=== PATIENT | female | born 1985 | race Caucasian/White ===

== ENCOUNTER 2024-12-26 17:23 | Inpatient (IN) | payer BC ==
[~2024-12-26] VITALS: Ht 170.2 cm; Wt 75.0 kg
[~2024-12-26 17:23] MED LIST: FAMO-128 PO; HYDR-3972 PO; OMEP20TA43 PO; ONDA4TAB6 PO; SUCR1TAB34 PO; ZOLP10TA5 PO
--- NOTE | 2024-12-26 19:35 | Physician Documentation ---
History of Present Illness ~ Chief Complaint: ETOH Withdrawl Stated Complaint: DETOX Time Seen by MD: 19:35 Primary Medical Doctor: Niharika JONES HPI 39-year-old female, history of chronic alcohol abuse, who presents with concern for alcohol withdrawal. She tells me that she is a daily drinker. She drinks at least a pt of hard alcohol daily. She has had withdrawal in the past including severe tremors and vomiting, but no history of alcohol withdrawal seizures. She does have a history of epilepsy and is on Keppra. Currently she feels anxious. She denies any significant tremors or nausea. No other acute concerns. Her is very concerned, thinks that she is not safe to be at home, thinks that she is going to kill herself due to her drinking. Tetanus within 5 years?: Yes Medication Reconciliation Allergies: Coded Allergies: Sulfa (Sulfonamide Antibiotics) (Verified Allergy, Unknown, 12/26/24) Scheduled Famotidine (Pepcid), 1 TABLET PO BID Levetiracetam (Levetiracetam), 1 TAB PO BID, (Reported) Omeprazole (Omeprazole), 1 TABLET PO DAILY Sertraline HCl (Sertraline HCl), 1 TAB PO DAILY, (Reported) Sucralfate (Carafate), 1 GM PO BID@07,16 Scheduled PRN Hydrocodone Bit/Acetaminophen (Hydrocodon-Acetaminophn 10-325 tablet), 1 TAB PO Q6H PRN for moderate or severe pain, (Reported) Ondansetron Hcl (Zofran), 1 TABLET PO Q4H PRN for nausea/vomiting Zolpidem Tartrate* (Ambien*), 1 TAB PO HS PRN for sleep, (Reported) Past Medical History Past Medical History: Pancreatitis, Chronic Back Pain Past Surgical History: gastric bypass Patient History: Patient reports no known family medical history. Alcohol Use: Other Drug Use: marijuana Lives with: S/O Lives In: Home Review of Systems Gastrointestinal: Denies: abdominal pain, nausea Psychiatric: Reports: anxiety Physical Exam Vital Signs: Temperature: 99.2, Source: Oral, Heart Rate: 117, Respiratory Rate: 20, BP: 132/93, Pulse Oximetry: 97, Weight: 75.000 Physical Exam General: This is an overall well-appearing young female, family at bedside HEENT: Atraumatic, oropharynx is moist Heart: Mild tachycardic, appears regular Lungs: normal work of breathing, normal oxygen saturation on room air Abdomen: Soft, nondistended Neuro: Alert and oriented, no focal deficits Psychiatric: Calm and cooperative with exam. Does not have tremors or tongue fasciculations. Progress Results/Orders Results/Orders Orders - BECKY FONSEAC MD Page Hospitalist (12/26/24 21:18) Completed Orders - BECKY FONSECA MD Cbc/Diff (12/26/24 19:35) CMP (12/26/24 19:35) Ethanol (12/26/24 19:35) Hcg Serum Ql (12/26/24 19:35) Lipase (12/26/24 19:35) MG (12/26/24 19:35) Chlordiazepoxide Capsule (Librium Capsul (12/26/24 21:20) Medications Received in ER Medications (Trade) Dose Ordered Sig/Elena Route PRN Reason Start Time Stop Time Status Last Admin Dose Admin Sodium Chloride 1,000 ml @ 100 mls/hr Q10H IV 12/26/24 21:50 12/26/24 22:22 100 MLS/HR Vital Signs 12/26/24 12/26/24 12/26/24 17:40 20:02 20:30 Temp 99.2 Pulse 117 90 Resp 20 16 16 B/P (MAP) 132/93 122/86 (98) Pulse Ox 97 99 Laboratory Tests Test 12/26/24 19:35 12/26/24 19:47 Sodium Level 140 Potassium Level 3.9 Chloride Level 100 Carbon Dioxide Level 22.3 L Anion Gap 18 H Blood Urea Nitrogen 13 Creatinine 0.79 Estimated GFR/1.73 m2 82 BUN/Creatinine Ratio 16.5 Glucose Level 93 Calcium Level 9.0 Magnesium Level 2.0 Total Bilirubin 0.5 Aspartate Amino Transf (AST/SGOT) 64 H Alanine Aminotransferase (ALT/SGPT) 52 Alkaline Phosphatase 115 Total Protein 8.2 Albumin 4.1 Globulin 4.1 Albumin/Globulin Ratio 1.0 L Lipase 33 Human Chorionic Gonadotropin, Qual Negative Chemistry Comments Ethyl Alcohol Level 326 H White Blood Count 7.8 Red Blood Count 4.55 Hemoglobin 13.5 Hematocrit 40.0 Mean Corpuscular Volume 88.0 Mean Corpuscular Hemoglobin 29.7 Mean Corpuscular Hemoglobin Concent 33.8 Red Cell Distribution Width 16.0 H Platelet Count 279 Mean Platelet Volume 8.2 Neutrophils (%) (Auto) 63.8 Lymphocytes (%) (Auto) 29.2 Monocytes (%) (Auto) 6.2 Eosinophils (%) (Auto) 0.4 Basophils (%) (Auto) 0.4 Neutrophils # (Auto) 5.0 Lymphocytes # (Auto) 2.3 Monocytes # (Auto) 0.5 Eosinophils # (Auto) 0.0 Basophils # (Auto) 0.0 CBC Comment Hemoglobin A1c 5.2 Consults/PCP Consults/PCP : Additional Comment Consult: I spoke to the internal medicine service, for admission in the hospital Medical Decision Making Additional Comment The patient presents with concern for alcohol withdrawal. On exam she has mild symptoms of withdrawal, but no dangerous findings. Her laboratory testing shows an elevated alcohol level, but no other dangerous abnormalities. She will be admitted to the medicine service for treatment of alcohol withdrawal. She was given Librium. Departure Impression: Primary Impression: Alcoholic intoxication Additional Impression: Alcohol withdrawal syndrome Referrals: NO PRIMARY CARE PROVIDER (PCP) Signature Scribe Signature: abbey Attestation: BECKY Morris MD Dec 26, 2024 19:35
[2024-12-26 20:05] LABS: BASOPHILS % (AUTO) 0.4 % (0-1); EOSINOPHILS % (AUTO) 0.4 % (0-6); HEMOGLOBIN 13.5 g/dl (12.0-16.0); LYMPHOCYTES # (AUTO) 2.3 X10'3 (1.1-4.8); LYMPHOCYTES % (AUTO) 29.2 % (21-51); MEAN CORPUSCULAR HEMOGLOBIN 29.7 PG (27.0-31.0); MEAN CORPUSCULAR HGB CONC 33.8 g/dL (33.0-36.5); MEAN PLATELET VOLUME 8.2 FL (7.4-10.4); MONOCYTES # (AUTO) 0.5 X10'3 (0-0.9); MONOCYTES % (AUTO) 6.2 % (2-12); NEUTROPHILS % (AUTO) 63.8 % (42-75); PLATELET COUNT 279 X10'3 (140-440); RED BLOOD COUNT 4.55 X10'6 (4.20-5.60); WHITE BLOOD COUNT 7.8 X10'3 (4.5-11.0)
[2024-12-26 20:12] LABS: HCG SERUM QL NEGATIVE
[2024-12-26] MEDS ORDERED: SERT-434 PO (20:24)
[2024-12-26] MEDS ORDERED: LEVE750T PO (20:24)
[2024-12-26 20:35] LABS: ALANINE AMINOTRANSFERASE 52 U/L (12-78); ALBUMIN 4.1 G/DL (3.4-5.0); ALKALINE PHOSPHATASE 115 IU/L (46-116); ANION GAP 18 (8-16); ASPARTATE AMINO TRANSFERASE 64 U/L (10-37); BILIRUBIN,TOTAL 0.5 MG/DL (0.1-1.0); BLOOD UREA NITROGEN 13 MG/DL (7-18); BUN/CREATININE RATIO 16.5 (10.0-20.0); CHLORIDE 100 MMOL/L (99-107); CREATININE 0.79 MG/DL (0.40-0.90); GLUCOSE 93 MG/DL (70-104); POTASSIUM 3.9 MMOL/L (3.5-5.1); SODIUM 140 MMOL/L (135-145); TOTAL CARBON DIOXIDE 22.3 MMOL/L (24-32); TOTAL PROTEIN 8.2 G/DL (6.4-8.2); eCRCL 95 ML/MIN; eGFR 82 ML/MIN
[2024-12-26 20:36] LABS: LIPASE 33 U/L (16-77)
[2024-12-26 20:42] LABS: ETHANOL 326 MG/DL (<10)
[2024-12-26] MEDS: chlordiazePOXIDE 25mg capsule PO ONE (21:39)
[2024-12-26] MEDS ORDERED: magnesium sulf-water 2g/50mL 50 ML IV PRN (21:50)
[2024-12-26] MEDS ORDERED: potassium Cl 40MEQ/1/2NS 520ml 520 ML IV PRN (21:50)
[2024-12-26] MEDS ORDERED: magnesium Cl slow-release 64mg tablet PO PRN (21:50)
[2024-12-26] MEDS ORDERED: potassium Cl 20 mEq SR tablet PO PRN ×2 (21:50)
[2024-12-26] MEDS ORDERED: magnesium sulf-water 4G/100mL 100 ML IV PRN (21:50)
[2024-12-26] MEDS ORDERED: magnesium hydroxide 30ml (MOM) UD suspension PO PRN (21:50)
[2024-12-26] MEDS ORDERED: haloperidol 5mg tablet PO PRN (21:55)
[2024-12-26] MEDS ORDERED: haloperidol lactate 5mg/ml inj IM PRN (21:55)
[2024-12-26] MEDS: folic acid 1mg/0.2ml inj IV SCH (22:22)
[2024-12-26] MEDS: normal saline 1000ml 1,000 ML IV SCH (22:22)
[2024-12-26 23:05] VITALS: BP 133/87; PULSE 100; RESP 22; TEMP 97.5; O2SAT 100
[2024-12-26] MEDS: LORazepam 2 mg/ml vial IV PRN (23:10)
--- NOTE | 2024-12-27 00:31 | HISTORY AND PHYSICAL-Residence ---
History & Physical Providers to CC Resident Creating Document: EARLE STALLINGS LO ~ History of Present Illness Primary Medical Doctor: Niharika JONES Reason for Admit\Complaint: Alcohol withdrawal History of Present Illness 39 years old female with history of epilepsy, chronic alcohol abuse presented to the ED with concern of alcohol withdrawal. Patient usually drink one bottle of hard liquor/whiskey. He quit drinking alcohol few weeks ago however he started drinking again recently. The last drinking was today one bottle of whiskey at noon. She is very anxious and concerned about withdrawal symptoms. She denies any hallucination, shortness of breath, chest pain abdominal pain or any other symptoms. Allergies: Coded Allergies: Sulfa (Sulfonamide Antibiotics) (Verified Allergy, Unknown, 12/26/24) Home Medications Home Medications Active Pepcid (Famotidine) 20 Mg Tablet 1 Tablet PO BID Zofran (Ondansetron Hcl) 4 Mg Tablet 1 Tablet PO Q4H PRN Omeprazole 20 Mg Tablet.dr 1 Tablet PO DAILY Carafate (Sucralfate) 1 Gm Tablet 1 Gm PO BID@,16 Reported Sertraline HCl 100 Mg Tablet 1 Tab PO DAILY Levetiracetam 750 Mg Tablet 1 Tab PO BID Ambien* (Zolpidem Tartrate) 10 Mg Tablet 1 Tab PO HS PRN Hydrocodon-Acetaminophn 10-325 tablet (Acetaminophen/Hydrocodone Bitart) 1 Each Tablet 1 Tab PO Q6H PRN Past Medical History Past Medical History Epilepsy Past Surgical History Surgical History Comment section Gastric bypass in 2007 Family History Family History: Patient reports no known family medical history. Past Social History Smoking: Non-Smoker Alcohol Use: Heavy Drug Use: Marijuana (Couple times in a week) Lives with: S/O Lives In: Home ROS ROS The history of present illness included a review of system, which yielded relevant positives and negatives Gastrointestinal: Denies: abdominal pain, nausea Psychiatric: Reports: anxiety Exam Vitals: Vital Signs Date Time Temp Pulse Resp B/P (MAP) Pulse Ox O2 Delivery O2 Flow Rate FiO2 12/26/24 23:17 107 12/26/24 23:05 97.5 22 133/87 (102) 100 Room Air General: General: Awake and Alert, no acute distress. HEENT: Conjunctiva pink, Sclera clear, Mucus Membranes moist. Neck: Supple without masses and tenderness. Resp: Lungs clear to auscultation bilaterally. Heart: Regular Rate and rhythm, normal S1 and S2 without murmur Abdomen: Soft and non tender no organomegaly Extremities: No cyanosis,clubbing or edema. Skin: Warm and Dry. Neurological: Speech is clear, alert, and oriented x 4, no gross neurological deficits Mild tremor Diagnostic Data Last Recorded Lab Results: 12/26/24194612/26/241934 Advance Care Planning Advanced Care plannin - 30 Minutes Additional Plan 79 years old female with history of epilepsy and chronic alcohol abuse presented to the ED with concern of alcohol withdrawal Heavy drinking alcohol Patient is drinking alcohol one bottle every day for a long time, she quit drinking couple weeks ago however she start drinking again. Last drink was today She is anxious with mild tremor on admission, alcohol level is 326 On moderate alcohol withdrawal thiamine, folic acid and Ativan haloperidol History of epilepsy Was diagnosed couple of months ago Continue home medication Code Status: full DVT prophylaxis: heparin Analgesia/sedation: Ativan, Line/tube: peripheral GI prophylaxis: Protonix Nutrition: Regular Prognosis: Fair Disposition: Continue monitoring patient in ortho floor with telemetry Earle Stallings MD Internal Medicine Resident I saw and discussed the patient with the resident team Alcohol abuse hx will see the substance abuse social work administrator or navigator ON IVF noted some low bicarb and high anion gap - ?? effect of alcohol etc - see how it evolves with hydration contd ciwa protocol agree with rest of assessment and plan thank you Date of Service: Dec 27, 2024 Billing Provider: JANE RASHEED MD, ELAHE, RES Dec 27, 2024 00:31 JANE RASHEED MD Dec 27, 2024 02:46
[2024-12-27 06:00] VITALS: BP 128/83; PULSE 91; RESP 17; TEMP 98.4; O2SAT 98
[2024-12-27 06:31] LABS: BASOPHILS % (AUTO) 0.4 % (0-1); EOSINOPHILS # (AUTO) 0.1 X10'3 (0-0.9); EOSINOPHILS % (AUTO) 1.6 % (0-6); HEMATOCRIT 33.8 % (35.0-45.0); HEMOGLOBIN 11.4 g/dl (12.0-16.0); LYMPHOCYTES # (AUTO) 1.4 X10'3 (1.1-4.8); LYMPHOCYTES % (AUTO) 27.8 % (21-51); MEAN CORPUSCULAR HEMOGLOBIN 29.9 PG (27.0-31.0); MEAN CORPUSCULAR HGB CONC 33.8 g/dL (33.0-36.5); MEAN CORPUSCULAR VOLUME 88.5 FL (78-98); MEAN PLATELET VOLUME 8.7 FL (7.4-10.4); MONOCYTES # (AUTO) 0.6 X10'3 (0-0.9); MONOCYTES % (AUTO) 11.6 % (2-12); NEUTROPHILS % (AUTO) 58.6 % (42-75); PLATELET COUNT 164 X10'3 (140-440); RED BLOOD COUNT 3.82 X10'6 (4.20-5.60); RED CELL DISTRIBUTION WIDTH 15.5 % (11.5-14.5); WHITE BLOOD COUNT 5.1 X10'3 (4.5-11.0)
[2024-12-27 07:14] LABS: ALANINE AMINOTRANSFERASE 42 U/L (12-78); ALBUMIN 3.2 G/DL (3.4-5.0); ALBUMIN/GLOBULIN RATIO 0.9 (1.1-1.5); ALKALINE PHOSPHATASE 100 IU/L (46-116); AMYLASE 38 U/L (25-115); ANION GAP 14 (8-16); ASPARTATE AMINO TRANSFERASE 50 U/L (10-37); BILIRUBIN,TOTAL 0.6 MG/DL (0.1-1.0); BLOOD UREA NITROGEN 12 MG/DL (7-18); BUN/CREATININE RATIO 15.6 (10.0-20.0); CALCIUM 8.2 MG/DL (8.5-10.1); CHLORIDE 101 MMOL/L (99-107); CHOL/HDL RATIO 2.2 (0.00-4.99); CHOLESTEROL 254 MG/DL (0-200); CREATININE 0.77 MG/DL (0.40-0.90); GLUCOSE 76 MG/DL (70-104); HDL CHOLESTEROL 113 MG/DL (35-60); LDL CHOLESTEROL 75 MG/DL (50-100); LIPASE 36 U/L (16-77); MAGNESIUM 1.7 MG/DL (1.5-2.4); PHOSPHORUS 3.4 MG/DL (2.3-4.5); POTASSIUM 3.7 MMOL/L (3.5-5.1); SODIUM 139 MMOL/L (135-145); TOTAL CARBON DIOXIDE 23.7 MMOL/L (24-32); TOTAL PROTEIN 6.6 G/DL (6.4-8.2); TRIGLYCERIDES 134 MG/DL (20-135); eCRCL 97 ML/MIN; eGFR 84 ML/MIN
[2024-12-27] MEDS: K and/or MAG REPLACEMENT MC SCH (07:31)
[2024-12-27] MEDS: thiamine 100mg/ml 2ml inj. IV SCH (07:49)
[2024-12-27] MEDS: multivitamins, therapeutics tablet PO SCH (07:50)
[2024-12-27] MEDS: levetiracetam 250mg tablet PO SCH (07:50)
[2024-12-27] MEDS: heparin, porcine 5000 units/ml vial SQ SCH (07:51)
--- NOTE | 2024-12-27 08:48 | PROGRESS NOTE ---
Daily Progress Note Providers to CC ~ Antibiotic Timeout Antibiotic Ordered?: No Subjective Chief complaint I wonder if my liver is dying Review of systems negative for all 10 systems reviewed Objective Vital Signs Date Time Temp Pulse Resp B/P (MAP) Pulse Ox O2 Delivery O2 Flow Rate FiO2 12/27/24 06:00 98.4 91 17 128/83 (98) 98 Room Air Result Diagram: 12/27/24 0540 12/27/24 0540 General: Awake and Alert, x4 no acute distress. HEENT: Conjunctiva pink, Sclera clear, Mucus Membranes moist. Neck: Supple without masses and tenderness. Resp: Lungs clear to auscultation bilaterally. Heart: Regular Rate and rhythm, normal S1 and S2 without murmur Abdomen: Soft and non tender no organomegaly Extremities: No cyanosis,clubbing or edema. Coagulation Studies Laboratory Tests Test 12/27/24 05:40 Prothrombin Time 10.0 SECONDS (9.0-12.0) INR International Normalized Ratio 1.0 INR Coagulation Comments Problem\Assessment\Plan Additional Plan 79 years old female with history of epilepsy and chronic alcohol abuse presented to the ED with concern of alcohol withdrawal Heavy drinking alcohol Patient is drinking alcohol one bottle every day for a long time, she quit drinking couple weeks ago however she start drinking again. Last drink was today She is anxious with mild tremor on admission, alcohol level is 326 On moderate alcohol withdrawal thiamine, folic acid and Ativan haloperidol Increased AST Patient advised against drinking Consult with substance abuse navigator History of epilepsy Was diagnosed couple of months ago Continue home medication Code Status: full DVT prophylaxis: heparin Analgesia/sedation: Ativan, Line/tube: peripheral GI prophylaxis: Protonix Nutrition: Regular Prognosis: Fair Possibly DC home in a.m. Date of Service: Dec 27, 2024 Billing Provider: RACHEL EVANS MD Common Visit Codes: [id number] INP/OBS CARE(HIGH) RACHEL EVANS MD Dec 27, 2024 08:48
[2024-12-27 10:00] VITALS: BP 123/85; PULSE 119; RESP 18; TEMP 98.3; O2SAT 96
[2024-12-27] MEDS ORDERED: acetaminophen 325mg tablet PO PRN (11:30)
[2024-12-27] MEDS: acetaminophen 325mg tablet PO PRN (11:40)
[2024-12-27 18:00] VITALS: BP 142/95; PULSE 110; RESP 18; TEMP 98.3; O2SAT 99
[2024-12-27 20:00] VITALS: RESP 15; O2SAT 96
[2024-12-27 22:00] VITALS: BP 148/96; PULSE 63; RESP 20; TEMP 98.6; O2SAT 99
[2024-12-28 06:00] VITALS: BP 126/86; PULSE 63; RESP 16; TEMP 97; O2SAT 98
[2024-12-28 06:21] LABS: BASOPHILS % (AUTO) 0.4 % (0-1); EOSINOPHILS # (AUTO) 0.1 X10'3 (0-0.9); EOSINOPHILS % (AUTO) 3.1 % (0-6); HEMATOCRIT 31.4 % (35.0-45.0); HEMOGLOBIN 10.6 g/dl (12.0-16.0); LYMPHOCYTES # (AUTO) 0.9 X10'3 (1.1-4.8); LYMPHOCYTES % (AUTO) 20.4 % (21-51); MEAN CORPUSCULAR HEMOGLOBIN 30.2 PG (27.0-31.0); MEAN CORPUSCULAR HGB CONC 33.8 g/dL (33.0-36.5); MEAN CORPUSCULAR VOLUME 89.3 FL (78-98); MEAN PLATELET VOLUME 8.9 FL (7.4-10.4); MONOCYTES # (AUTO) 0.3 X10'3 (0-0.9); MONOCYTES % (AUTO) 7.1 % (2-12); PLATELET COUNT 136 X10'3 (140-440); RED BLOOD COUNT 3.51 X10'6 (4.20-5.60); RED CELL DISTRIBUTION WIDTH 15.4 % (11.5-14.5); WHITE BLOOD COUNT 4.4 X10'3 (4.5-11.0)
[2024-12-28 06:35] LABS: PROTHROMBIN TIME 10.3 SECONDS (9.0-12.0)
[2024-12-28 06:43] LABS: ALANINE AMINOTRANSFERASE 32 U/L (12-78); ALBUMIN 2.7 G/DL (3.4-5.0); ALBUMIN/GLOBULIN RATIO 0.9 (1.1-1.5); ALKALINE PHOSPHATASE 89 IU/L (46-116); AMYLASE 38 U/L (25-115); ANION GAP 8 (8-16); ASPARTATE AMINO TRANSFERASE 28 U/L (10-37); BLOOD UREA NITROGEN 13 MG/DL (7-18); BUN/CREATININE RATIO 19.7 (10.0-20.0); CALCIUM 8.4 MG/DL (8.5-10.1); CHLORIDE 104 MMOL/L (99-107); CREATININE 0.66 MG/DL (0.40-0.90); GLUCOSE 109 MG/DL (70-104); LIPASE 35 U/L (16-77); MAGNESIUM 1.7 MG/DL (1.5-2.4); PHOSPHORUS 3.2 MG/DL (2.3-4.5); POTASSIUM 3.9 MMOL/L (3.5-5.1); SODIUM 137 MMOL/L (135-145); TOTAL CARBON DIOXIDE 25.5 MMOL/L (24-32); TOTAL PROTEIN 5.8 G/DL (6.4-8.2); eCRCL 113 ML/MIN; eGFR > 90 ML/MIN
[2024-12-28 10:00] VITALS: BP 111/70; PULSE 102; RESP 19; TEMP 97.8; O2SAT 97
--- NOTE | 2024-12-28 14:26 | RADIOLOGY REPORT ---
EXAM: DI FOOT,LIMITED (AP/LAT) CLINICAL INDICATION: per patient, they dropped heavy object on right great toe - r/o fx TECHNIQUE: DI FOOT,LIMITED (AP/LAT) Comparison: None FINDINGS/IMPRESSION: Nondisplaced fracture involving the distal phalanx of the 1st digit.
[2024-12-28 18:00] VITALS: BP 139/93; PULSE 89; RESP 16; TEMP 97.8; O2SAT 99
[2024-12-28] MEDS ORDERED: HYDROmorphone inj. 0.5 MG/0.5 ML DISP.SYRIN IV PRN (19:35)
[2024-12-28 20:05] VITALS: RESP 16
[2024-12-28] MEDS: HYDROcodone/acetaminophen 5mg/325mg tablet PO PRN (20:09)
--- NOTE | 2024-12-28 21:20 | PROGRESS NOTE ---
Daily Progress Note Providers to CC ~ Antibiotic Timeout Antibiotic Ordered?: No Subjective Patient was seen in presence of her mother who feels that Elmer might be t riggering her alcohol abuse. Patient is currently not working lives with her . Patient is concerned about her alcohol abuse. She has history of epilepsy no further episode of seizure or epilepsy is since admission. Patient needs physical therapy evaluation. Objective Vital Signs Date Time Temp Pulse Resp B/P (MAP) Pulse Ox O2 Delivery O2 Flow Rate FiO2 12/28/24 20:09 16 12/28/24 20:05 Room Air 12/28/24 10:00 97.8 102 111/70 (20) 97 Result Diagram: 12/28/24 0602 12/28/24 0602 General-patient not in any acute distress, alert awake oriented, age- appropriate, looks comfortable HEENT-atraumatic normocephalic, neck supple without elevated JVD, no thyromegaly or carotid bruit. No lymphadenopathy bilaterally. Eyes-no icterus or pallor seen in eyes Chest-clear to auscultation bilaterally, breathing nonlabored no tachypnea, no wheezing, no crepitation, no crackles. Heart-S1-S2 normal, regular heart rate no murmur Abdomen bowel sounds positive on auscultation, soft nondistended nontender no guarding, no rigidity Skin no active skin rash Neurology-grossly intact, nonfocal alert awake oriented Extremity- no pedal edema able to move all 4 extremities Psychiatry - patient is not confused or agitated cooperated during physical examination Coagulation Studies Laboratory Tests Test 12/28/24 06:02 Prothrombin Time 10.3 SECONDS (9.0-12.0) INR International Normalized Ratio 1.0 INR Coagulation Comments Problem\Assessment\Plan Additional Plan 79 years old female with history of epilepsy and chronic alcohol abuse presented to the ED with concern of alcohol withdrawal Heavy drinking alcohol Patient is drinking alcohol one bottle every day for a long time, she quit drinking couple weeks ago however she start drinking again. Last drink was yesterday She is anxious with mild tremor on admission, alcohol level is 326 On moderate alcohol withdrawal thiamine, folic acid and Ativan haloperidol Increased AST Patient advised against drinking Consult with substance abuse navigator History of epilepsy Was diagnosed couple of months ago Continue home medication Code Status: full DVT prophylaxis: heparin Analgesia/sedation: Ativan, Line/tube: peripheral GI prophylaxis: Protonix Nutrition: Regular Prognosis: Fair Possibly DC home in a.m. if clinically stable. Date of Service: Dec 28, 2024 Billing Provider: DEWEY STUART MD Common Visit Codes: [id number] INP/OBS CARE(HIGH) DEWEY STUART MD Dec 28, 2024 21:20
[2024-12-28] MEDS ORDERED: LORazepam 2 mg/ml vial IV PRN (21:55)
[2024-12-28 22:00] VITALS: BP 141/99; PULSE 82; RESP 16; TEMP 97.9; O2SAT 99
[2024-12-28] MEDS: LORazepam 1 MG tablet PO PRN (23:32)
[2024-12-29 01:30] VITALS: BP 127/94; PULSE 69; RESP 18; TEMP 97.8; O2SAT 98
[2024-12-29] MEDS: ondansetron/PF 4mg/2ml inj IV PRN (01:37)
[2024-12-29 04:36] LABS: BASOPHILS % (AUTO) 0.3 % (0-1); EOSINOPHILS # (AUTO) 0.1 X10'3 (0-0.9); EOSINOPHILS % (AUTO) 3.9 % (0-6); HEMOGLOBIN 10.6 g/dl (12.0-16.0); LYMPHOCYTES # (AUTO) 0.8 X10'3 (1.1-4.8); MEAN CORPUSCULAR HEMOGLOBIN 29.6 PG (27.0-31.0); MEAN CORPUSCULAR VOLUME 89.8 FL (78-98); MEAN PLATELET VOLUME 8.9 FL (7.4-10.4); MONOCYTES # (AUTO) 0.2 X10'3 (0-0.9); MONOCYTES % (AUTO) 5.3 % (2-12); NEUTROPHILS # (AUTO) 2.7 X10'3 (1.8-7.7); NEUTROPHILS % (AUTO) 70.5 % (42-75); PLATELET COUNT 112 X10'3 (140-440); RED BLOOD COUNT 3.56 X10'6 (4.20-5.60); RED CELL DISTRIBUTION WIDTH 15.6 % (11.5-14.5); WHITE BLOOD COUNT 3.8 X10'3 (4.5-11.0)
[2024-12-29 04:51] LABS: PROTHROMBIN TIME 10.4 SECONDS (9.0-12.0)
[2024-12-29 04:58] LABS: ALANINE AMINOTRANSFERASE 187 U/L (12-78); ALBUMIN 2.9 G/DL (3.4-5.0); ALBUMIN/GLOBULIN RATIO 0.9 (1.1-1.5); ALKALINE PHOSPHATASE 214 IU/L (46-116); AMYLASE 38 U/L (25-115); ANION GAP 8 (8-16); ASPARTATE AMINO TRANSFERASE 272 U/L (10-37); BLOOD UREA NITROGEN 12 MG/DL (7-18); BUN/CREATININE RATIO 18.8 (10.0-20.0); CALCIUM 8.7 MG/DL (8.5-10.1); CHLORIDE 106 MMOL/L (99-107); CREATININE 0.64 MG/DL (0.40-0.90); GLUCOSE 90 MG/DL (70-104); LIPASE 31 U/L (16-77); MAGNESIUM 1.8 MG/DL (1.5-2.4); PHOSPHORUS 4.2 MG/DL (2.3-4.5); POTASSIUM 3.7 MMOL/L (3.5-5.1); SODIUM 141 MMOL/L (135-145); TOTAL CARBON DIOXIDE 26.8 MMOL/L (24-32); TOTAL PROTEIN 6.1 G/DL (6.4-8.2); eCRCL 117 ML/MIN; eGFR > 90 ML/MIN
[2024-12-29 06:00] VITALS: BP 139/86; PULSE 74; RESP 16; TEMP 97.6; O2SAT 98
[2024-12-29 08:00] VITALS: RESP 16; O2SAT 98
[2024-12-29 10:00] VITALS: BP 146/87; PULSE 93; RESP 17; TEMP 98.4; O2SAT 99
--- NOTE | 2024-12-29 12:54 | RADIOLOGY REPORT ---
Exam: CT CT ABDOMEN PELVIS History: elevated LFT Comparison Study: None Technique: Multidetector spiral CT of the abdomen was performed from lung bases to pubic symphysis. Imaging was performed without IV contrast. Axial, coronal and sagittal multiplanar reformats were ob tained from the axial data set by the technologist. Radiation Dose : 1. Abdomen/Pelvis: CTDIvol 22 mGy, DLP 1194 mGy*cm. Findings: Evaluation of solid organs is limited due to lack of intravenous contrast use. Lung Bases: No acute or significant lung base finding. Normal heart size. No pleural or pericardial effusion. Liver: The liver is normal in size. No focal lesions. Gallbladder and Biliary Tree: Cholelithiasis noted without secondary findings of cholecystitis or dru iary obstruction. Spleen: Unremarkable Pancreas: The pancreas is grossly normal in appearance. Adrenal Glands: Unremarkable Kidneys: Kidneys are grossly normal without calculi or hydronephrosis. Bladder: Grossly unremarkable for degree of distention. Bowel: Surgical fixation hardware seen around the stomach. Small bowel and colon are normal in calibe r and distribution. The appendix is not visualized; however, no secondary findings of acute appendic itis identified. Moderate to large colonic stool burden Ascites: Absent Lymphadenopathy: No mesenteric, retroperitoneal or periportal lymphadenopathy. Abdominal Wall and Mesentery: Unremarkable. Vasculature: The visualized abdominal aorta is normal in size and caliber. Evaluation of abdominal a nd pelvic vessels is limited due to lack of intravenous contrast. Pelvic Organs: Unremarkable Musculoskeletal: No aggressive focal bony lesions, acute fractures or dislocation. IMPRESSION: 1. No acute abdominal or pelvic findings. 2. Cholelithiasis. 3. Moderate to large colonic stool burden Radiation optimization: All CT scans at this facility use at least one of these dose optimization gillian hniques: automated exposure control mA and/or kV adjustment per patient size (includes targeted exam s where dose is matched to clinical indication) or iterative reconstruction.
[2024-12-29 18:30] VITALS: BP 144/90; PULSE 97; RESP 17; TEMP 97; O2SAT 99
--- NOTE | 2024-12-29 19:42 | PROGRESS NOTE ---
Daily Progress Note Providers to CC ~ Antibiotic Timeout Antibiotic Ordered?: No Subjective Patient was seen in presence of her mother today. Detailed counseling done regarding risk and consequences of alcohol abuse. Patient's liver enzymes increase today likely due to recent use of Ativan we will continue to monitor patient's liver function. CT scan abdomen and pelvis findings discussed with patient's mom and patient in visit. Objective Vital Signs Date Time Temp Pulse Resp B/P (MAP) Pulse Ox O2 Delivery O2 Flow Rate FiO2 12/29/24 18:30 97.0 97 17 144/90 (108) 99 Room Air 12/29/24 04:54 0 21 Result Diagram: 12/29/24 0411 12/29/24 0411 General-patient not in any acute distress, alert awake oriented, age- appropriate, looks comfortable HEENT-atraumatic normocephalic, neck supple without elevated JVD, no thyromegaly or carotid bruit. No lymphadenopathy bilaterally. Eyes-no icterus or pallor seen in eyes Chest-clear to auscultation bilaterally, breathing nonlabored no tachypnea, no wheezing, no crepitation, no crackles. Heart-S1-S2 normal, regular heart rate no murmur Abdomen bowel sounds positive on auscultation, soft nondistended nontender no guarding, no rigidity Skin no active skin rash Neurology-grossly intact, nonfocal alert awake oriented Extremity- no pedal edema able to move all 4 extremities Psychiatry - patient is not confused or agitated cooperated during physical examination Coagulation Studies Laboratory Tests Test 12/29/24 04:11 Prothrombin Time 10.4 SECONDS (9.0-12.0) INR International Normalized Ratio 1.0 INR Coagulation Comments Problem\Assessment\Plan Additional Plan 79 years old female with history of epilepsy and chronic alcohol abuse presented to the ED with concern of alcohol withdrawal Heavy drinking alcohol Patient is drinking alcohol one bottle every day for a long time, she quit drinking couple weeks ago however she start drinking again. Last drink was yesterday She is anxious with mild tremor on admission, alcohol level is 326 On moderate alcohol withdrawal thiamine, folic acid and Ativan haloperidol Increased AST Patient advised against drinking Consult with substance abuse navigator History of epilepsy Was diagnosed couple of months ago Continue home medication Code Status: full DVT prophylaxis: heparin Analgesia/sedation: Ativan, Line/tube: peripheral GI prophylaxis: Protonix Nutrition: Regular Prognosis: Fair Possibly DC home in a.m. if clinically stable. I will continue to follow patient in AM . Date of Service: Dec 29, 2024 Billing Provider: DEWEY STUART MD Common Visit Codes: [id number] INP/OBS CARE(HIGH) DEWEY STUART MD Dec 29, 2024 19:42
[2024-12-29 22:00] VITALS: BP 143/102; PULSE 72; RESP 16; TEMP 98.1; O2SAT 99
[2024-12-30 04:34] LABS: BASOPHILS % (AUTO) 0.5 % (0-1); EOSINOPHILS # (AUTO) 0.2 X10'3 (0-0.9); EOSINOPHILS % (AUTO) 4.9 % (0-6); HEMATOCRIT 30.4 % (35.0-45.0); HEMOGLOBIN 10.1 g/dl (12.0-16.0); LYMPHOCYTES # (AUTO) 0.9 X10'3 (1.1-4.8); LYMPHOCYTES % (AUTO) 27.3 % (21-51); MEAN CORPUSCULAR HEMOGLOBIN 29.8 PG (27.0-31.0); MEAN CORPUSCULAR HGB CONC 33.1 g/dL (33.0-36.5); MEAN CORPUSCULAR VOLUME 90.1 FL (78-98); MEAN PLATELET VOLUME 9.2 FL (7.4-10.4); MONOCYTES # (AUTO) 0.2 X10'3 (0-0.9); MONOCYTES % (AUTO) 7.2 % (2-12); NEUTROPHILS # (AUTO) 2.1 X10'3 (1.8-7.7); NEUTROPHILS % (AUTO) 60.1 % (42-75); PLATELET COUNT 96 X10'3 (140-440); RED BLOOD COUNT 3.38 X10'6 (4.20-5.60); RED CELL DISTRIBUTION WIDTH 15.1 % (11.5-14.5); WHITE BLOOD COUNT 3.5 X10'3 (4.5-11.0)
[2024-12-30 04:57] LABS: ALANINE AMINOTRANSFERASE 122 U/L (12-78); ALBUMIN 2.7 G/DL (3.4-5.0); ALBUMIN/GLOBULIN RATIO 0.8 (1.1-1.5); ALKALINE PHOSPHATASE 178 IU/L (46-116); AMYLASE 43 U/L (25-115); ANION GAP 4 (8-16); ASPARTATE AMINO TRANSFERASE 76 U/L (10-37); BILIRUBIN,TOTAL 0.5 MG/DL (0.1-1.0); BLOOD UREA NITROGEN 10 MG/DL (7-18); BUN/CREATININE RATIO 15.2 (10.0-20.0); CALCIUM 8.7 MG/DL (8.5-10.1); CHLORIDE 104 MMOL/L (99-107); CREATININE 0.66 MG/DL (0.40-0.90); GLUCOSE 89 MG/DL (70-104); LIPASE 30 U/L (16-77); MAGNESIUM 1.6 MG/DL (1.5-2.4); PHOSPHORUS 4.6 MG/DL (2.3-4.5); POTASSIUM 3.5 MMOL/L (3.5-5.1); SODIUM 138 MMOL/L (135-145); TOTAL PROTEIN 5.9 G/DL (6.4-8.2); eCRCL 113 ML/MIN; eGFR > 90 ML/MIN
[2024-12-30 06:00] VITALS: BP 144/89; PULSE 76; RESP 17; TEMP 97.8; O2SAT 98
[2024-12-30 08:00] VITALS: RESP 18; O2SAT 99
[2024-12-30] MEDS ORDERED: FAMO-129 PO (08:31)
[2024-12-30 10:00] VITALS: BP 132/98; PULSE 91; RESP 17; TEMP 97.5; O2SAT 100
[2024-12-30] MEDS ORDERED: FOLI0.4T6 PO (12:26)
[2024-12-30] MEDS ORDERED: MULT-1074 PO (12:26)
[2024-12-30] MEDS ORDERED: THIA50TA10 PO (12:26)
--- NOTE | 2024-12-30 19:50 | DISCHARGE SUMMARY ---
Discharge Summary Providers to CC ~ Discharge Summary Admission Diagnosis: ALCOHOL WITHDRAWAL Hospital Course DATE OF ADMISSION: December 27, 2024 DATE OF DISCHARGE: December 30, 2024 CBC testing done on December 30, 2024 WBC 3.5 hemoglobin 10.1 hematocrit 30.4 platelet count 96. Serum chemistry done on December 30, 2024 sodium 138 potassium 3.5 creatinine 0.66 GFR greater than 90 phosphorus 4.6 total bilirubin 0.5 AST 76 ALT 122 alkaline phosphatase 178 lipase 30. Lipid panel showing triglyceride 134 LDL 75 total cholesterol 254 HDL 113. Ethyl alcohol [address] CT ABDOMEN PELVISIMPRESSION: 1. No acute abdominal or pelvic findings. 2. Cholelithiasis. 3. Moderate to large colonic stool burden FOOT,LIMITED (AP/LAT)-FINDINGS/IMPRESSION: Nondisplaced fracture involving the distal phalanx of the 1st digit. Discharge Diagnosis\Comment: Chronic alcohol abuse, chronic anxiety, history of epilepsy/ seizure disorder, Nondisplaced fracture involving the distal phalanx of the 1st digit, anemia, thrombocytopenia, abnormal LFT due to alcoholism Operations\Procedures: None Consultants: None Complications: None Condition on DC: Stable New Medications: Folic Acid* (Folic Acid*) 0.4 Mg Tablet 1 TAB PO DAILY for 30 Days, #30 TAB Multivitamin (Multi-Vitamin Daily) 1 Each Tablet 1 TAB PO DAILY for 30 Days, #30 TAB 0 Refills Thiamine HCl (Vitamin B-1) 50 Mg Tablet 2 TAB PO DAILY for 30 Days, #60 TAB 0 Refills Continued Medications: Famotidine (Pepcid) 20 Mg Tablet 1 TAB PO BID for 30 Days, #60 TAB 0 Refills Levetiracetam (Levetiracetam) 750 Mg Tablet 1 TAB PO BID Sertraline HCl (Sertraline HCl) 100 Mg Tablet 1 TAB PO DAILY Discharge Summary: 39 years old female with history of epilepsy and chronic alcohol abuse presented to the ED with concern of alcohol withdrawal Heavy drinking alcohol Patient is drinking alcohol one bottle every day for a long time, she quit drinking couple weeks ago however she start drinking again. Last drink was yesterday She is anxious with mild tremor on admission, alcohol level is 326 treated On moderate alcohol withdrawal thiamine, folic acid and Ativan haloperidol Increased AST Patient advised against drinking and risk and consequences explained in detail Consulted with substance abuse navigator History of epilepsy Was diagnosed couple of months ago Continue home medication Patient's clinical condition improved she is able to ambulate. Feeling much better she has been afebrile and getting discharged home in stable condition. Patient is seen and examined on the day of discharge discharge instructions pro vided to the patient. All labs diagnostic workup and discharge plan discussed with patient's mother yesterday and with patient today all questions and concerns answered to the best of my professional medical knowledge. General-patient not in any acute distress, alert awake oriented, age- appropriate, looks comfortable HEENT-atraumatic normocephalic, neck supple without elevated JVD, no thyromegaly or carotid bruit. No lymphadenopathy bilaterally. Eyes-no icterus or pallor seen in eyes Chest-clear to auscultation bilaterally, breathing nonlabored no tachypnea, no wheezing, no crepitation, no crackles. Heart-S1-S2 normal, regular heart rate no murmur Abdomen bowel sounds positive on auscultation, soft nondistended nontender no guarding, no rigidity Skin no active skin rash Neurology-grossly intact, nonfocal alert awake oriented Extremity- no pedal edema able to move all 4 extremities Psychiatry - patient is not confused or agitated cooperated during physical examination *Problems/Diagnosis: (1) Alcoholic intoxication Status: Acute Total Time Spent on D/C: > 30 Minutes Date of Service: Dec 30, 2024 Billing Provider: DEWEY STUART MD Common Visit Codes: [id number] DISCH DAY >30min DEWEY STUART MD Dec 30, 2024 19:46
[2024-12-30] MEDS ORDERED: LORazepam 1 MG tablet PO PRN ×2 (21:55)
[2024-12-30] MEDS ORDERED: LORazepam 2 mg/ml vial IV PRN ×2 (21:55)
== END 2024-12-30 13:45 | disposition home or self-care (01) | DRG 563 ==
LOC: ER 17:25 → ED HOLD 21:53 → EDBEDREQ 22:16 → ORTHO 4S 22:58 → SUR 3N 12-29 01:28
PROVIDERS: ADMIT Internal Medicine; ATTEND Internal Medicine
DX: S92.425A Nondisplaced fracture of distal phalanx of left great toe, initial encounter for closed fracture (principal); F10.239 Alcohol dependence with withdrawal, unspecified; D64.9 Anemia, unspecified; D69.6 Thrombocytopenia, unspecified; F10.229 Alcohol dependence with intoxication, unspecified; X58.XXXA Exposure to other specified factors, initial encounter; G40.909 Epilepsy, unspecified, not intractable, without status epilepticus; Y93.89 Activity, other specified; Z98.84 Bariatric surgery status; Y92.89 Other specified places as the place of occurrence of the external cause; Y99.8 Other external cause status; Z88.2 Allergy status to sulfonamides
CPT/HCPCS: 36415; 73620; 74176; 80053; 80061; 80320; 82150; 82948; 83036; 83690; 83735; 84100; 84703; 85025; 85610; 87081; 99285; A6449; G0378; J1644; J2060; J2405; J3411; J3490; J7030